=== PATIENT | female | born 1965 | race Caucasian/White ===

== ENCOUNTER 2018-09-17 14:24 | Emergency (ER) | payer MEDICAID, OTHER ==
[~2018-09-17] VITALS: Ht 160 cm; Wt 72.6 kg
--- NOTE | 2018-09-17 14:33 | NUR ---
PT A/OX4, PRESENTS TO THE ER C/O HEADACHE X 2 MONTHS. PT STATES SHE HAS BEEN TO HER PCP AND WAS DIAGNOSED W/ VERTIGO BUT IBUPROFEN HAS NOT BEEN SUCCESSFUL IN PAIN MANAGEMENT. VSS. 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 PT DENIES C/P, SOB, N/V. ER MD AT BEDSIDE FOR MSE.
[2018-09-17] MEDS ORDERED: MECL-102 PO (14:34)
--- NOTE | 2018-09-17 14:48 | NUR ---
pt taken to radiology for ct scan.
--- NOTE | 2018-09-17 15:00 | NUR ---
PT BACK IN ER FROM RADIOLOGY.
[2018-09-17 15:53] LABS: BASOPHILS % (AUTO) 0.6 % (0.0-2.0); EOSINOPHILS % (AUTO) 0.4 % (0.0-7.0); HEMATOCRIT 41.5 % (31.2-41.9); HEMOGLOBIN 14.1 g/dL (10.9-14.3); LYMPHOCYTES # (AUTO) 2.7 K/uL (20.0-40.0); LYMPHOCYTES % (AUTO) 34.6 % (20.5-51.5); MEAN CORPUSCULAR HEMOGLOBIN 31.9 uug (24.7-32.8); MEAN CORPUSCULAR HGB CONC 34 g/dL (32.3-35.6); MEAN CORPUSCULAR VOLUME 93.8 fL (75.5-95.3); MONOCYTES # (AUTO) 0.6 K/uL (2.0-10.0); MONOCYTES % (AUTO) 7.2 % (0.0-11.0); NEUTROPHILS # (AUTO) 4.5 K/uL (1.8-8.9); NEUTROPHILS % (AUTO) 57.2 % (38.5-71.5); PLATELET COUNT (AUTO) 247 K/uL (179-408); RED BLOOD CELL COUNT(AUTO) 4.42 MIL/uL (3.63-4.92); WHITE BLOOD COUNT (AUTO) 7.8 K/uL (3.8-11.8)
[2018-09-17 15:58] LABS: CREATININE 0.7 mg/dL (0.6-1.3); POTASSIUM 3.4 mmol/L (3.5-5.1)
[2018-09-17 16:04] LABS: BILIRUBIN,DIRECT 0.1 mg/dL (0.0-0.2); BILIRUBIN,TOTAL 0.3 mg/dL (0.2-1.0); TOTAL PROTEIN, SERUM 7.9 g/dL (6.4-8.2)
--- NOTE | 2018-09-17 17:27 | NUR ---
SPOKE W/ EARNESTINE FROM [facility]. PT ADMIT TO ROOM 4433-1. CALL FOR REPORT [phone] EXT [phone] AMBULNZ TO TRANSFER. ETA 2000
--- NOTE | 2018-09-17 19:14 | NUR ---
SHIFT REPORT GIVEN TO LINDA URIARTE.
[2018-09-17] MEDS ORDERED: MORPHINE SULFATE 4 MG/1 ML DISP.SYRIN IV ONE (19:15)
--- NOTE | 2018-09-17 19:16 | NUR ---
RECEIVING DR AT [facility] - DR. BELL. [facility].
[2018-09-17] MEDS ORDERED: MORPHINE SULFATE 4 MG/1 ML DISP.SYRIN ONE (19:28)
--- NOTE | 2018-09-17 19:30 | NUR ---
Recieved report from Berry URIARTE, assumed care of pt., pt. is resting in bed w/ family at bedside, flushed IV, VSS, NAD
--- NOTE | 2018-09-17 19:47 | NUR ---
Gave report to Johnathan Charge Nurse, awaiting transport ETA 2000
--- NOTE | 2018-09-17 20:14 | NUR ---
[id number] here for transport
--- NOTE | 2018-09-17 20:30 | NUR ---
Pt. taken off unit for transfer to [facility] via stretcher, JESSICA, SARITAS
== END 2018-09-17 20:55 | disposition short-term general hospital (02) ==
LOC: ER 14:24
DX: D49.6 Neoplasm of unspecified behavior of brain (principal); G93.6 Cerebral edema; Z79.899 Other long term (current) drug therapy
CPT/HCPCS: 36415; 70450; 71045; 80048; 80076; 85025; 85730; 93005; 96374; 99291; J2270; A4663

== ENCOUNTER 2021-01-27 17:23 | Emergency (ER) | payer MEDICARE, OTHER ==
[~2021-01-27] VITALS: Ht 160 cm; Wt 72.6 kg
[~2021-01-27 17:23] MED LIST: MECL-159 PO
[2021-01-27] MEDS ORDERED: LOSA25TA27 PO (17:39)
--- NOTE | 2021-01-27 17:45 | NUR ---
at bedside for assessment
[2021-01-27] MEDS ORDERED: PHENAZOPYRIDINE HCL 100 MG TABLET PO ONE (18:00)
[2021-01-27] MEDS ORDERED: PHENAZOPYRIDINE HCL 100 MG TABLET ONE (18:26)
[2021-01-27 18:34] LABS: *URINE HCG, QUAL NEGATIVE (NEGATIVE)
[2021-01-27] MEDS ORDERED: PHEN-895 PO (18:42)
[2021-01-27] MEDS ORDERED: CEPH500C2 PO (18:42)
--- NOTE | 2021-01-27 19:00 | NUR ---
Received report from KALANI Hensley.
[2021-01-27 19:23] LABS: *BILIRUBIN,URIN 1+ (NEGATIVE); *BLOOD, URINE 3+ (NEGATIVE); *CLARITY,URINE CLEAR (CLEAR); *KETONES,URINE NEGATIVE (NEGATIVE); *UROBILINOGEN,URINE 0.2 E.U./dl (NORMAL); LEUKOCYTE ESTERASE ,URINE NEGATIVE (NEGATIVE); NITRITE, URINE NEGATIVE (NEGATIVE); UGLUCOSE NEGATIVE (NEGATIVE)
--- NOTE | 2021-01-27 19:25 | NUR ---
Ar [address] Dr. for pelvic exam.
--- NOTE | 2021-01-27 21:07 | NUR ---
Note edenilsonone in EDM - 01/27/21 at 2218 by ALIZA Patient discharged to home in stable condition. A/O x4, no SOB or labored breathing. Afebrile. No c/o pain or discomfort at this time. Written and verbal after care instructions given. Patient verbalizes understanding of instructions. Stressed follow up or return to ER for worsening s/s. Steady gait.
[2021-01-27 21:31] LABS: *COLOR,URINE RED (YELLOW); RBC,URINE TNTC /HPF (0-3); WBC,URINE 0-3 /HPF (0-3)
[2021-01-27 21:32] LABS: BACTERIA,URINE NONE SEEN /HPF (NONE SEEN); SQUAMOUS EPITHELIAL CELL,UR FEW /HPF (NONE SEEN)
[2021-01-27] MEDS ORDERED: AZITHROMYCIN 250 MG TABLET PO ONE (22:00)
[2021-01-27] MEDS ORDERED: AZITHROMYCIN 250 MG TABLET ONE (22:05)
--- NOTE | 2021-01-27 22:13 | NUR ---
Patient discharged to home in stable condition. A/O x4, no SOB or labored breathing. Afebrile. No c/o pain or discomfort at this time. Written and verbal after care instructions given. Patient verbalizes understanding of instructions. Stressed follow up or return to ER for worsening s/s. Steady gait.
[2021-01-27 22:20] VITALS: BP 130/78
== END 2021-01-27 22:14 | disposition home or self-care (01) ==
LOC: ER 17:28
DX: R30.0 Dysuria (principal); R31.0 Gross hematuria; Z78.0 Asymptomatic menopausal state; Z86.03 Personal history of neoplasm of uncertain behavior
CPT/HCPCS: 84703; A4663; Q0144

== ENCOUNTER 2021-02-22 12:22 | Emergency (ER) | payer BC, OTHER ==
[~2021-02-22] VITALS: Ht 160 cm; Wt 70.3 kg
[~2021-02-22 12:22] MED LIST changes: +CEPH500C2 PO; +LOSA25TA27 PO; +PHEN-895 PO
[2021-02-22 12:48] LABS: HEMATOCRIT 44.6 % (31.2-41.9); MEAN CORPUSCULAR HEMOGLOBIN 31.2 uug (24.7-32.8); MEAN CORPUSCULAR VOLUME 92.5 fL (75.5-95.3); PLATELET COUNT (AUTO) 249 K/uL (179-408)
[2021-02-22 12:57] LABS: *BILIRUBIN,URIN NEGATIVE (NEGATIVE); *CLARITY,URINE CLEAR (CLEAR); *COLOR,URINE YELLOW (YELLOW); *KETONES,URINE NEGATIVE (NEGATIVE); *UROBILINOGEN,URINE 0.2 E.U./dl (NORMAL); LEUKOCYTE ESTERASE ,URINE NEGATIVE (NEGATIVE); NITRITE, URINE NEGATIVE (NEGATIVE); PH,URINE 7.5 (5.0-8.0); UGLUCOSE NEGATIVE (NEGATIVE)
[2021-02-22 13:00] LABS: *BLOOD, URINE TRACE (NEGATIVE)
[2021-02-22 13:01] LABS: BILIRUBIN,DIRECT 0.1 mg/dL (0.0-0.2); BILIRUBIN,TOTAL 0.3 mg/dL (0.2-1.0); CREATININE 0.7 mg/dL (0.6-1.3); POTASSIUM 4.2 mmol/L (3.5-5.1)
--- NOTE | 2021-02-22 13:21 | NUR ---
assissted/chaperoned md with vaginal exam. pt tolerated well. Addendum: 02/22/21 at 1321 by TONY samples sent to lab.
[2021-02-22 14:35] VITALS: BP 121/77
[2021-02-22] MEDS ORDERED: IBUP-1955 PO (14:35)
--- NOTE | 2021-02-22 14:35 | NUR ---
Patient discharged to home in stable condition. Written and verbal after care instructions given. Patient verbalizes understanding of instructions. Stressed follow up or return to ER for worsening s/s.
[2021-02-22 17:33] LABS: BACTERIA,URINE NONE SEEN /HPF (NONE SEEN); RBC,URINE 0-3 /HPF (0-3); SQUAMOUS EPITHELIAL CELL,UR FEW /HPF (NONE SEEN); WBC,URINE NONE SEEN /HPF (0-3)
[2021-02-26 15:10] LABS: *GC NAA Negative; *TRIC.VAG. NAA Negative
== END 2021-02-22 14:38 | disposition home or self-care (01) ==
LOC: ER 12:22
DX: N89.8 Other specified noninflammatory disorders of vagina (principal); D32.0 Benign neoplasm of cerebral meninges
CPT/HCPCS: 36415; 83690; 85025; 87210; 87491; A4663